=== PATIENT | female | born 1975 | race Native Hawaiian/Other Pacific Islander ===

== ENCOUNTER 2017-11-30 22:31 | Emergency (ER) | payer OTHER ==
[~2017-11-30 22:31] MED LIST: TYLE3 PO; Z.0.NO CURRENT MEDS
[2017-11-30 22:43] VITALS: BP 195/105; PULSE 76; RESP 20; TEMP 99; O2SAT 100
--- NOTE | 2017-12-01 00:25 | PD ---
HPI Chief Complaint: Anxiety Time Seen by Provider: 00:22 Travel History International Travel<30 days: No Contact w/Intl Traveler<30days: No Traveled to known affect area: No History of Present Illness HPI The patient is a 42-year-old female that was on Ativan 0.5 mg 3 times daily for a month because of tinnitus. This was given to her by her specialist, Dr. Schuster. They have an appointment to see Dr. Schuster in 2 weeks. She suddenly discontinued the Ativan 4 days ago. She complains of dry mouth, anxiety, heart palpitations, nonvertiginous dizziness and generalized numbness in her body. She only had 3 tablets left. She denies any nausea. She denies any syncopal or near syncopal spells. She denies any fever. She denies any dysuria, frequency or urgency. She denies any hallucinations or delusions. [facility] Past Medical History LMP: NOVEMBER 05 2017 Social History Alcohol Use: No Tobacco Use: No Substance Use: No Allergies-Medications (Allergen,Severity, Reaction): Coded Allergies: No Known Allergies (Verified Adverse Reaction, Unknown, 12/01/17) Reported Meds & Prescriptions Reported Meds & Active Scripts Active Ativan (Lorazepam) 0.5 Mg Tab 0.5 Mg PO BID 3 Days Reported Ativan (Lorazepam) 0.5 Mg Tab 0.5 Mg PO Q8H PRN Review of Systems Except as stated in HPI: all other systems reviewed are Neg Physical Exam Narrative GENERAL: The patient is alert, oriented 3 in no apparent distress. The blood pressure is 195/105 but the rest of the vital signs are normal. SKIN: Focused skin assessment warm/dry. HEAD: Atraumatic. Normocephalic. EYES: Pupils equal and round. No scleral icterus. No injection or drainage. ENT: No nasal bleeding or discharge. Mucous membranes pink and moist. NECK: Trachea midline. No JVD. CARDIOVASCULAR: Regular rate and rhythm. No murmur appreciated. RESPIRATORY: No accessory muscle use. Clear to auscultation. Breath sounds equal bilaterally. GASTROINTESTINAL: Abdomen soft, non-tender, nondistended. Hepatic and splenic margins not palpable. No guarding or rebound is present. MUSCULOSKELETAL: No obvious deformities. No clubbing. No cyanosis. No edema. NEUROLOGICAL: Awake and alert. No obvious cranial nerve deficits. Motor grossly within normal limits. Normal speech. PSYCHIATRIC: The patient appears anxious; insight and judgment normal. Data Data Last Documented VS Vital Signs Date Time Temp Pulse Resp B/P (MAP) Pulse Ox O2 Delivery O2 Flow Rate FiO2 12/01/17 00:21 72 20 11/30/17 22:43 99.0 195/105 (135) 100 Orders Orders Electrocardiogram (12/01/17 00:26) [facility] Medical Decision Making Medical Screen Exam Complete: Yes Emergency Medical Condition: Yes Medical Record Reviewed: Yes Interpretation(s) The EKG is normal. There is a normal sinus rhythm with a ventricular rate of 70. Differential Diagnosis Ativan withdrawal, anxiety, palpitations-PVCs Narrative Course The patient appears to have Ativan withdrawal. She has anxiety, dry mouth, and other manifestations of anxiety such as perceived numbness in all of her extremities. Plan: The patient will be given Ativan0.5 mg #15 so that she can slowly withdrawn Ativan. She needs to contact Dr. Schuster about withdrawing on Ativan, he may not wish her to withdraw on Ativan. Diagnosis Primary Impression: Benzodiazepine withdrawal Additional Impression: Anxiety Additional Instructions: As we discussed, give Dr. Schuster a call and discuss withdrawing on Ativan. If you cannot get hold of him, try 0.5 mg Ativan twice daily for 3 days followed by 0.5 mg Ativan once daily for 3 days. Med/Other Pt SpecificInfo: Prescription(s) given Scripts Lorazepam (Ativan) 0.5 Mg Tab 0.5 MG PO BID for X 3days than daily for 3 Days, #6 TAB 0 Refills Prov: Trung Glaser MD 12/01/17 Disposition: 01 DISCHARGE HOME Condition: Stable Trung Glaser MD Dec 01, 2017 00:25
[2017-12-01 00:40] VITALS: BP 168/88; PULSE 72; RESP 20; O2SAT 98
[2017-12-01] MEDS ORDERED: LORA-392 PO ×2 (00:42→00:51)
[2017-12-01 01:30] VITALS: BP 145/90
--- NOTE | 2017-12-01 16:29 | EKG ---
Date Performed: 12/01/2017 Time Performed: 00:34:41 PTAGE: 42 years EKG: Sinus rhythm WITH SINUS ARRHYTHMIA NORMAL ECG NO PREVIOUS TRACING DOCTOR: Kriss Carranza Interpretating Date/Time 12/01/2017 16:27:20
== END 2017-12-01 01:35 | disposition home or self-care (01) ==
LOC: PHED 22:31
DX: F13.239 Sedative, hypnotic or anxiolytic dependence with withdrawal, unspecified (principal); F41.9 Anxiety disorder, unspecified
CPT/HCPCS: 93005; 99283